=== PATIENT | male | born 1945 | race Caucasian/White ===

== ENCOUNTER 2018-01-13 09:06 | Emergency (ER) | payer MEDICARE, MEDICAID ==
[~2018-01-13] VITALS: Ht 170.2 cm; Wt 73.0 kg
[2018-01-13 09:10] VITALS: BP 142/88
[2018-01-13] MEDS ORDERED: triamcinolone acetonide 40mg/ml inj IM ONE (10:00)
== END 2018-01-13 10:10 | disposition home or self-care (01) ==
LOC: ER 09:06
DX: L23.7 Allergic contact dermatitis due to plants, except food (principal)
CPT/HCPCS: 96372; 99283; J3301